=== PATIENT | male | born 1955 | race Caucasian/White ===

== ENCOUNTER → 2017-08-01 | Outpatient (CLI) | payer OTHER ==
[~2017-08-01] MED LIST: ALBU90OI INH; AMIKACIN S1000 MG/4 IV; Amikacin S250 MG/11 IV; CEFOXITIN IV; CLOFAZIMINE1 GM PO; IMIPENEM-CILAS500 MG IV; IPRA.06NI; MEROPENEM500 MG IV; METF500 PO; RANI150 PO; STRIVERDI RESPIM4 GM IH
== END | disposition home or self-care (01) ==
LOC: LAB 09:46 → EDSTATUS 07-27 15:10 → LAB FUT 07-27 15:10
DX: J47.1 Bronchiectasis with (acute) exacerbation (principal); R05 Cough
CPT/HCPCS: 87070; 87205

== ENCOUNTER → 2017-09-06 | Outpatient (CLI) | payer OTHER ==
[2017-09-07 13:32] LABS: Stool Occult Bld Immuno 1 Negative (NEGATIVE)
== END ==
LOC: OLS 16:15 → LAB SHORT 16:15 → LAB FUT 09-01 11:50 → EDSTATUS 09-01 11:50
PROVIDERS: Internal Medicine
DX: D50.8 Other iron deficiency anemias (principal)
CPT/HCPCS: 82274

== ENCOUNTER → 2020-09-06 | Outpatient (CLI) | payer MEDICARE, BC | END | disposition home or self-care (01) | LOC: LAB SHORT 07:30 → LAB 07:30 | DX: A31.9 Mycobacterial infection, unspecified (principal) | CPT/HCPCS: 87015; 87116; 87206 ==

== ENCOUNTER → 2020-11-07 | Outpatient (CLI) | payer MEDICARE, BC | LOC: LAB 08:00 → LAB SHORT 08:00 | DX: A31.0 Pulmonary mycobacterial infection (principal); J47.9 Bronchiectasis, uncomplicated; Z91.041 Radiographic dye allergy status | CPT/HCPCS: 87070; 87077; 87186; 87205 ==

== ENCOUNTER → 2020-11-21 | Outpatient (CLI) | payer MEDICARE, BC ==
[2020-11-21 14:49] LABS: Adenovirus F 40/41 Not Detected (NOT DETECT); Astrovirus Not Detected (NOT DETECT); Campylobacter Sp Not Detected (NOT DETECT); Cryptosporidium Not Detected (NOT DETECT); Cyclospora Cayetanensis Not Detected (NOT DETECT); E. Coli O157 Not Detected (NOT DETECT); Entamoeba Histolytica Not Detected (NOT DETECT); Enteroaggregative E. coli-EAEC Not Detected (NOT DETECT); Enteropathogenic E. coli-EPEC Not Detected (NOT DETECT); Enterotoxigenic E. coli-ETEC Not Detected (NOT DETECT); Giardia Lamblia Detected (NOT DETECT); Norovirus GI/GII Not Detected (NOT DETECT); Plesiomonas Shigelloides Not Detected (NOT DETECT); Rotavirus A Not Detected (NOT DETECT); Salmonella Sp Not Detected (NOT DETECT); Sapovirus Not Detected (NOT DETECT); Shiga Toxin-prod E. coli-STEC Not Detected (NOT DETECT); Shigella/Enteroin E. coli-EIEC Not Detected (NOT DETECT); Vibrio Cholerae Not Detected (NOT DETECT); Vibrio Sp Not Detected (NOT DETECT); Yersinia Enterocolitica Not Detected (NOT DETECT)
== END | disposition home or self-care (01) ==
LOC: LAB SHORT 09:30 → LAB 09:30
PROVIDERS: Internal Medicine
DX: R19.7 Diarrhea, unspecified (principal)
CPT/HCPCS: 0097U

== ENCOUNTER 2021-11-28 10:39 | Day surgery (SDC) | payer MEDICARE, BC ==
[~2021-11-28] VITALS: Ht 193 cm; Wt 79.7 kg
[~2021-11-28 10:39] MED LIST changes: +BREO ELLIPTA 11 EAC1 IH; +ETHA400 PO; +GLIP5 PO; +IPRATROPIUM BRO15 ML NS; +PROP10 PO; +RIFA150 PO
[2021-11-28] MEDS ORDERED: AZIT500 (11:26)
--- NOTE | 2021-11-28 13:02 | NUR ---
11/28/21 1302 BRENDA LY LIDOCAINE 2% 10MLS INJECTED AT BEGINNING OF CASE BY DR. JAMES. 0.05MG OF EPI ADDED TO 10MLS OF BUPIVACAINE 0.5% TO CREATE A LOCAL SOLUTION OF BUPIVACAINE 0.5% WITH EPI 1:200,000. LOCAL SOLUTION POURED ONTO STERILE FIELD FOR USE DURING CASE.
== END 2021-11-28 13:55 | disposition home or self-care (01) ==
LOC: ORSCSDS 10:39
PROVIDERS: Podiatrist Foot & Ankle Surgery
PROC: 0SGN04Z Fusion of Left Metatarsal-Phalangeal Joint with Internal Fixation Device, Open Approach (ICD-10-PCS; principal; 2021-11-28 11:55)
DX: S92.425D Nondisplaced fracture of distal phalanx of left great toe, subsequent encounter for fracture with routine healing (principal); K21.9 Gastro-esophageal reflux disease without esophagitis; E11.9 Type 2 diabetes mellitus without complications; Z79.84 Long term (current) use of oral hypoglycemic drugs; Z79.899 Other long term (current) drug therapy
CPT/HCPCS: 82947; J0171; J0690; J1885; J2250; J2704

== ENCOUNTER → 2022-08-25 | Outpatient (CLI) | payer MEDICARE, BC ==
[~2022-08-25] MED LIST changes: +AZIT500
== END ==
LOC: LAB 13:45 → LAB SHORT 13:45 → LAB FUT 08-11 17:50
DX: A31.0 Pulmonary mycobacterial infection (principal)
CPT/HCPCS: 87015; 87116; 87206

== ENCOUNTER → 2022-10-11 | Outpatient (CLI) | payer MEDICARE, BC | END | disposition home or self-care (01) | LOC: LAB SHORT 10:05 → LAB 10:05 | DX: J18.9 Pneumonia, unspecified organism (principal) | CPT/HCPCS: 87070; 87077; 87186; 87205 ==

== ENCOUNTER 2023-12-15 04:15 | Day surgery (SDC) | payer MEDICARE, BC ==
[2023-12-15 16:21] VITALS: BP 155/90
[2023-12-20] MEDS ORDERED: AMIKACIN S IV (11:11)
== END 2023-12-15 17:00 | disposition home or self-care (01) ==
LOC: ATC 04:15
DX: A31.0 Pulmonary mycobacterial infection (principal)
CPT/HCPCS: 36569; C1751

== ENCOUNTER 2024-01-03 03:42 | Day surgery (SDC) | payer MEDICARE, BC ==
[~2024-01-03 03:42] MED LIST changes: +AMIKACIN S IV
[2024-01-03 10:04] VITALS: BP 145/79
[2024-01-03] MEDS ORDERED: NS IV SCH (10:15)
[2024-01-03] MEDS ORDERED: AMIKACIN SULFATE IV SCH (10:15)
[2024-01-03 10:55] LABS: BASOPHILS ABSOLUTE AUTO 0.03 K/mm3 (0.00-0.23); BASOPHILS PERCENT AUTO 1 % (0-2); EOSINOPHILS ABSOLUTE AUTO 0.16 K/mm3 (0.00-0.68); EOSINOPHILS PERCENT AUTO 4 % (0-6); Hematocrit 36.4 % (37.0-53.0); Hemoglobin 12.1 g/dL (13.5-17.5); IMMATURE GRAN ABSOLUTE AUTO 0.01 K/mm3 (0.00-0.10); IMMATURE GRAN PERCENT AUTO 0 % (0-1); LYMPHOCYTES PERCENT AUTO 10 % (21-46); MONOCYTES ABSOLUTE AUTO 0.45 K/mm3 (0.16-1.47); MONOCYTES PERCENT AUTO 12 % (4-13); Mean Corpuscular HGB 31.5 pg (26.0-34.0); Mean Corpuscular HGB Conc 33.2 g/dL (31.5-36.5); Mean Corpuscular Volume 95 fL (80-100); Mean Platelet Volume 10.1 fL (9.1-12.4); NEUTROPHILS ABSOLUTE AUTO 2.84 K/mm3 (1.96-9.15); NEUTROPHILS PERCENT AUTO 73 % (41-73); Platelet Count 181 K/mm3 (150-400); RDW Coefficient Variation 12.8 % (11.7-14.2); RDW Standard Deviation 44.6 fL (35.1-46.3); Red Blood Cell Count 3.84 M/mm3 (4.30-5.90); White Blood Cell Count 3.89 K/mm3 (4.00-11.30)
[2024-01-03 11:22] LABS: Albumin, Blood 3.6 g/dL (3.4-5.0); Albumin/Globulin Ratio 0.9 (0.8-1.8); Bilirubin, Total 0.2 mg/dL (0.1-1.0); Bun/Creatinine Ratio 20.6 (12.0-20.0); Calcium, Blood 8.9 mg/dL (8.5-10.1); Creatinine, Blood 1.02 mg/dL (0.60-1.20); Potassium, Blood 4.6 mmol/L (3.5-5.5); Total Protein, Blood 7.6 g/dL (6.4-8.2)
[2024-01-03 12:24] LABS: BASOPHILS PERCENT MAN 0 % (0-2); EOSINOPHILS ABSOLUTE MAN 0.19 K/mm3 (0.00-0.68); EOSINOPHILS PERCENT MAN 5 % (0-6); LYMPHOCYTES ABSOLUTE MAN 0.35 K/mm3 (0.84-5.20); LYMPHOCYTES PERCENT MAN 9 % (21-46); MONOCYTES ABSOLUTE MAN 0.15 K/mm3 (0.16-1.47); MONOCYTES PERCENT MAN 4 % (4-13); NEUTROPHILS ABSOLUTE MAN 3.18 K/mm3 (1.96-9.15); SEG NEUTROPHILS PERCENT MAN 82 % (41-73); TOTAL CELLS COUNTED 100
--- NOTE | 2024-01-03 16:01 | NUR ---
Lab results from today faxed to Dr. Bustamante's office.
== END 2024-01-03 12:05 | disposition home or self-care (01) ==
LOC: ATC 03:42
PROVIDERS: Internal Medicine Infectious Disease
DX: A31.0 Pulmonary mycobacterial infection (principal); E11.9 Type 2 diabetes mellitus without complications
CPT/HCPCS: 80053; 85025; 96365; J0278; J7040

== ENCOUNTER 2024-01-06 02:42 | Day surgery (SDC) | payer MEDICARE, BC ==
[2024-01-06] MEDS ORDERED: NS IV SCH (07:20)
[2024-01-06] MEDS ORDERED: AMIKACIN SULFATE IV SCH (07:20)
[2024-01-06 08:35] VITALS: BP 113/87
== END 2024-01-06 09:42 | disposition home or self-care (01) ==
LOC: ATC 02:42
DX: A31.0 Pulmonary mycobacterial infection (principal); Z88.8 Allergy status to other drugs, medicaments and biological substances; Z79.84 Long term (current) use of oral hypoglycemic drugs; Z79.4 Long term (current) use of insulin; Z79.899 Other long term (current) drug therapy
CPT/HCPCS: 96365; J0278; J7040

== ENCOUNTER 2024-01-10 00:38 | Day surgery (SDC) | payer MEDICARE, BC ==
[~2024-01-10] VITALS: Wt 76.3 kg
[2024-01-10] MEDS ORDERED: NS IV SCH (06:00)
[2024-01-10] MEDS ORDERED: AMIKACIN SULFATE IV SCH (06:00)
[2024-01-10 10:01] VITALS: BP 131/91
== END 2024-01-10 11:45 | disposition home or self-care (01) ==
LOC: ATC 00:38
DX: Z01.818 Encounter for other preprocedural examination (principal); N39.3 Stress incontinence (female) (male); A31.0 Pulmonary mycobacterial infection; E11.9 Type 2 diabetes mellitus without complications; Z79.4 Long term (current) use of insulin; Z79.84 Long term (current) use of oral hypoglycemic drugs; Z88.8 Allergy status to other drugs, medicaments and biological substances; Z91.041 Radiographic dye allergy status
CPT/HCPCS: 36415; 80048; 81003; 85025; 85610; 87086; 96365; J0278; J7040

== ENCOUNTER 2024-01-13 02:39 | Day surgery (SDC) | payer MEDICARE, BC ==
[2024-01-13] MEDS ORDERED: NS IV SCH (07:00)
[2024-01-13] MEDS ORDERED: AMIKACIN SULFATE IV SCH (07:00)
[2024-01-13 10:07] VITALS: BP 159/94
== END 2024-01-13 11:13 | disposition home or self-care (01) ==
LOC: ATC 02:39
DX: A31.0 Pulmonary mycobacterial infection (principal); E11.9 Type 2 diabetes mellitus without complications; H91.93 Unspecified hearing loss, bilateral; Z79.84 Long term (current) use of oral hypoglycemic drugs; Z79.4 Long term (current) use of insulin
CPT/HCPCS: 96365; J0278; J7040

== ENCOUNTER 2024-01-17 00:31 | Day surgery (SDC) | payer MEDICARE, BC ==
[~2024-01-17] VITALS: Ht 223.5 cm; Wt 76.8 kg
[2024-01-17] MEDS ORDERED: AMIKACIN SULFATE IV SCH (06:00)
[2024-01-17] MEDS ORDERED: NS IV SCH (06:00)
[2024-01-17 14:18] VITALS: BP 131/65
[2024-01-17 14:29] LABS: BASOPHILS ABSOLUTE AUTO 0.04 K/mm3 (0.00-0.23); BASOPHILS PERCENT AUTO 1 % (0-2); EOSINOPHILS ABSOLUTE AUTO 0.32 K/mm3 (0.00-0.68); EOSINOPHILS PERCENT AUTO 7 % (0-6); Hematocrit 38.7 % (37.0-53.0); Hemoglobin 12.9 g/dL (13.5-17.5); IMMATURE GRAN ABSOLUTE AUTO 0.01 K/mm3 (0.00-0.10); IMMATURE GRAN PERCENT AUTO 0 % (0-1); LYMPHOCYTES ABSOLUTE AUTO 0.64 K/mm3 (0.84-5.20); LYMPHOCYTES PERCENT AUTO 13 % (21-46); MONOCYTES ABSOLUTE AUTO 0.45 K/mm3 (0.16-1.47); MONOCYTES PERCENT AUTO 9 % (4-13); Mean Corpuscular HGB 31.5 pg (26.0-34.0); Mean Corpuscular HGB Conc 33.3 g/dL (31.5-36.5); Mean Corpuscular Volume 94 fL (80-100); Mean Platelet Volume 10.1 fL (9.1-12.4); NEUTROPHILS ABSOLUTE AUTO 3.35 K/mm3 (1.96-9.15); NEUTROPHILS PERCENT AUTO 70 % (41-73); Platelet Count 148 K/mm3 (150-400); RDW Coefficient Variation 12.7 % (11.7-14.2); White Blood Cell Count 4.81 K/mm3 (4.00-11.30)
--- NOTE | 2024-01-17 14:32 | NUR ---
WE HAD ORDERS FROM [facility] TO DO LABS AND URINALYSIS TODAY PRIOR TO PT'S UPCOMING SURGERY IN [place]. PT DECLINED TODAY STATING THAT HE HAD ALL THOSE TAKEN CARE OF LAST WEEK IN THE OUTPATIENT LAB.
[2024-01-17 15:00] LABS: Albumin, Blood 3.6 g/dL (3.4-5.0); Albumin/Globulin Ratio 0.9 (0.8-1.8); Bilirubin, Total 0.3 mg/dL (0.1-1.0); Bun/Creatinine Ratio 23.5 (12.0-20.0); Calcium, Blood 9.5 mg/dL (8.5-10.1); Creatinine, Blood 0.89 mg/dL (0.60-1.20); Globulin, Blood 3.9 g/dL (2.2-4.0); Potassium, Blood 4.6 mmol/L (3.5-5.5); Total Protein, Blood 7.5 g/dL (6.4-8.2)
--- NOTE | 2024-01-17 17:12 | NUR ---
LAB RESULTS FAXED TO DR VALDIVIA
== END 2024-01-17 15:26 | disposition home or self-care (01) ==
LOC: ATC 00:31
PROVIDERS: Internal Medicine
DX: A31.0 Pulmonary mycobacterial infection (principal); E11.9 Type 2 diabetes mellitus without complications; Z79.84 Long term (current) use of oral hypoglycemic drugs; Z79.4 Long term (current) use of insulin; Z79.899 Other long term (current) drug therapy
CPT/HCPCS: 80053; 85025; 96365; J0278; J7040

== ENCOUNTER 2024-01-20 00:58 | Day surgery (SDC) | payer MEDICARE, BC ==
[2024-01-20] MEDS ORDERED: AMIKACIN SULFATE IV SCH (06:00)
[2024-01-20] MEDS ORDERED: NS IV SCH (06:00)
[2024-01-20 09:03] VITALS: BP 140/89
== END 2024-01-20 10:17 | disposition home or self-care (01) ==
LOC: ATC 00:58
DX: A31.0 Pulmonary mycobacterial infection (principal); E11.9 Type 2 diabetes mellitus without complications; Z88.8 Allergy status to other drugs, medicaments and biological substances; Z91.041 Radiographic dye allergy status; Z79.4 Long term (current) use of insulin; Z79.899 Other long term (current) drug therapy
CPT/HCPCS: 96365; J0278; J7040

== ENCOUNTER 2024-02-03 01:34 | Day surgery (SDC) | payer MEDICARE, BC ==
[2024-02-03] MEDS ORDERED: AMIKACIN SULFATE IV SCH (06:00)
[2024-02-03] MEDS ORDERED: NS IV SCH (06:00)
[2024-02-03 15:25] VITALS: BP 113/75
[2024-02-03 16:33] LABS: BASOPHILS ABSOLUTE AUTO 0.03 K/mm3 (0.00-0.23); BASOPHILS PERCENT AUTO 1 % (0-2); EOSINOPHILS ABSOLUTE AUTO 0.15 K/mm3 (0.00-0.68); EOSINOPHILS PERCENT AUTO 3 % (0-6); Hematocrit 35.8 % (37.0-53.0); Hemoglobin 11.9 g/dL (13.5-17.5); IMMATURE GRAN ABSOLUTE AUTO 0.01 K/mm3 (0.00-0.10); IMMATURE GRAN PERCENT AUTO 0 % (0-1); LYMPHOCYTES ABSOLUTE AUTO 0.51 K/mm3 (0.84-5.20); LYMPHOCYTES PERCENT AUTO 9 % (21-46); MONOCYTES ABSOLUTE AUTO 0.52 K/mm3 (0.16-1.47); MONOCYTES PERCENT AUTO 10 % (4-13); Mean Corpuscular HGB 31.4 pg (26.0-34.0); Mean Corpuscular HGB Conc 33.2 g/dL (31.5-36.5); Mean Corpuscular Volume 95 fL (80-100); Mean Platelet Volume 10.7 fL (9.1-12.4); NEUTROPHILS ABSOLUTE AUTO 4.27 K/mm3 (1.96-9.15); NEUTROPHILS PERCENT AUTO 78 % (41-73); Platelet Count 180 K/mm3 (150-400); RDW Coefficient Variation 12.6 % (11.7-14.2); RDW Standard Deviation 43.5 fL (35.1-46.3); Red Blood Cell Count 3.79 M/mm3 (4.30-5.90); White Blood Cell Count 5.49 K/mm3 (4.00-11.30)
[2024-02-03 17:11] LABS: Albumin, Blood 3.4 g/dL (3.4-5.0); Bilirubin, Total 0.3 mg/dL (0.1-1.0); Bun/Creatinine Ratio 25.7 (12.0-20.0); Calcium, Blood 8.8 mg/dL (8.5-10.1); Creatinine, Blood 1.05 mg/dL (0.60-1.20); Globulin, Blood 3.5 g/dL (2.2-4.0); Potassium, Blood 4.3 mmol/L (3.5-5.5); Total Protein, Blood 6.9 g/dL (6.4-8.2)
== END 2024-02-03 16:33 | disposition home or self-care (01) ==
LOC: ATC 01:34
PROVIDERS: Internal Medicine Infectious Disease
DX: A31.0 Pulmonary mycobacterial infection (principal); E11.9 Type 2 diabetes mellitus without complications; Z79.84 Long term (current) use of oral hypoglycemic drugs; Z79.4 Long term (current) use of insulin; Z79.899 Other long term (current) drug therapy
CPT/HCPCS: 80053; 85025; 96365; J0278; J7040

== ENCOUNTER 2024-02-07 03:48 | Day surgery (SDC) | payer MEDICARE, BC ==
[~2024-02-07] VITALS: Wt 77.7 kg
[2024-02-07] MEDS ORDERED: NS IV SCH (06:00)
[2024-02-07] MEDS ORDERED: AMIKACIN SULFATE IV SCH (06:00)
[2024-02-07 14:29] VITALS: BP 140/80
== END 2024-02-07 15:36 | disposition home or self-care (01) ==
LOC: ATC 03:48
DX: A31.0 Pulmonary mycobacterial infection (principal); J47.9 Bronchiectasis, uncomplicated; E11.9 Type 2 diabetes mellitus without complications; Z79.899 Other long term (current) drug therapy
CPT/HCPCS: 96365; J0278; J7040

== ENCOUNTER 2024-02-10 02:40 | Day surgery (SDC) | payer MEDICARE, BC ==
[2024-02-10] MEDS ORDERED: AMIKACIN SULFATE IV SCH (07:20)
[2024-02-10] MEDS ORDERED: NS IV SCH (07:20)
[2024-02-10 08:01] VITALS: BP 128/67
== END 2024-02-10 09:06 | disposition home or self-care (01) ==
LOC: ATC 02:40
DX: A31.0 Pulmonary mycobacterial infection (principal); E11.9 Type 2 diabetes mellitus without complications; Z88.8 Allergy status to other drugs, medicaments and biological substances; Z91.041 Radiographic dye allergy status; Z79.4 Long term (current) use of insulin; Z79.84 Long term (current) use of oral hypoglycemic drugs; Z79.899 Other long term (current) drug therapy
CPT/HCPCS: 96365; J0278; J7040

== ENCOUNTER 2024-02-14 04:52 | Day surgery (SDC) | payer MEDICARE, BC ==
[~2024-02-14] VITALS: Wt 76.8 kg
[2024-02-14] MEDS ORDERED: AMIKACIN SULFATE IV SCH (08:15)
[2024-02-14] MEDS ORDERED: NS IV SCH (08:15)
[2024-02-14 09:03] VITALS: BP 131/70
== END 2024-02-14 10:12 | disposition home or self-care (01) ==
LOC: ATC 04:52
DX: A31.0 Pulmonary mycobacterial infection (principal); E11.9 Type 2 diabetes mellitus without complications; J47.9 Bronchiectasis, uncomplicated
CPT/HCPCS: 96365; J0278; J7040

== ENCOUNTER 2024-02-17 02:34 | Day surgery (SDC) | payer MEDICARE, BC ==
[2024-02-17] MEDS ORDERED: AMIKACIN SULFATE IV SCH (07:20)
[2024-02-17] MEDS ORDERED: NS IV SCH (07:20)
[2024-02-17 08:03] VITALS: BP 133/68
[2024-02-17 08:47] LABS: BASOPHILS ABSOLUTE AUTO 0.04 K/mm3 (0.00-0.23); BASOPHILS PERCENT AUTO 1 % (0-2); EOSINOPHILS ABSOLUTE AUTO 0.31 K/mm3 (0.00-0.68); EOSINOPHILS PERCENT AUTO 8 % (0-6); Hematocrit 38.2 % (37.0-53.0); Hemoglobin 12.8 g/dL (13.5-17.5); IMMATURE GRAN PERCENT AUTO 0 % (0-1); LYMPHOCYTES ABSOLUTE AUTO 0.68 K/mm3 (0.84-5.20); LYMPHOCYTES PERCENT AUTO 17 % (21-46); MONOCYTES PERCENT AUTO 10 % (4-13); Mean Corpuscular HGB 31.5 pg (26.0-34.0); Mean Corpuscular HGB Conc 33.5 g/dL (31.5-36.5); Mean Corpuscular Volume 94 fL (80-100); Mean Platelet Volume 10.4 fL (9.1-12.4); NEUTROPHILS ABSOLUTE AUTO 2.52 K/mm3 (1.96-9.15); NEUTROPHILS PERCENT AUTO 64 % (41-73); Platelet Count 152 K/mm3 (150-400); RDW Coefficient Variation 12.8 % (11.7-14.2); RDW Standard Deviation 44.1 fL (35.1-46.3); Red Blood Cell Count 4.06 M/mm3 (4.30-5.90); White Blood Cell Count 3.95 K/mm3 (4.00-11.30)
[2024-02-17 09:12] LABS: Albumin, Blood 3.6 g/dL (3.4-5.0); Bilirubin, Total 0.5 mg/dL (0.1-1.0); Bun/Creatinine Ratio 22.2 (12.0-20.0); Calcium, Blood 9.4 mg/dL (8.5-10.1); Creatinine, Blood 1.08 mg/dL (0.60-1.20); Globulin, Blood 3.7 g/dL (2.2-4.0); Potassium, Blood 4.3 mmol/L (3.5-5.5); Total Protein, Blood 7.3 g/dL (6.4-8.2)
[2024-02-21] MEDS ORDERED: NS IV SCH
[2024-02-21] MEDS ORDERED: AMIKACIN SULFATE IV SCH
== END 2024-02-17 09:15 | disposition home or self-care (01) ==
LOC: ATC 02:34
PROVIDERS: Internal Medicine Infectious Disease
DX: A31.0 Pulmonary mycobacterial infection (principal); J47.9 Bronchiectasis, uncomplicated; H91.8X3 Other specified hearing loss, bilateral; E11.9 Type 2 diabetes mellitus without complications; Z79.4 Long term (current) use of insulin; Z79.84 Long term (current) use of oral hypoglycemic drugs; Z79.2 Long term (current) use of antibiotics; Z79.899 Other long term (current) drug therapy; Z91.041 Radiographic dye allergy status; Z88.8 Allergy status to other drugs, medicaments and biological substances
CPT/HCPCS: 80053; 85025; 96365; J0278; J7040

== ENCOUNTER 2024-02-21 02:02 | Day surgery (SDC) | payer MEDICARE, BC ==
[~2024-02-21] VITALS: Wt 76.4 kg
[~2024-02-21 02:02] MED LIST changes: +AMIKACIN SULFATE IV SCH; +NS IV SCH
[2024-02-21] MEDS ORDERED: AMIKACIN SULFATE IV SCH (07:30)
[2024-02-21] MEDS ORDERED: NS IV SCH (07:30)
[2024-02-21 08:36] VITALS: BP 124/72
== END 2024-02-21 09:48 | disposition home or self-care (01) ==
LOC: ATC 02:02
DX: A31.0 Pulmonary mycobacterial infection (principal); E11.9 Type 2 diabetes mellitus without complications; Z79.84 Long term (current) use of oral hypoglycemic drugs; Z79.4 Long term (current) use of insulin; Z79.899 Other long term (current) drug therapy
CPT/HCPCS: 96365; J0278; J7040

== ENCOUNTER 2024-02-24 02:31 | Day surgery (SDC) | payer MEDICARE, BC ==
[~2024-02-24] VITALS: Wt 77.1 kg
[~2024-02-24 02:31] MED LIST changes: -AMIKACIN SULFATE IV SCH; -NS IV SCH
[2024-02-24] MEDS ORDERED: NS IV SCH (06:00)
[2024-02-24] MEDS ORDERED: AMIKACIN SULFATE IV SCH (06:00)
[2024-02-24 09:08] VITALS: BP 131/71
== END 2024-02-24 10:09 | disposition home or self-care (01) ==
LOC: ATC 02:31
DX: A31.0 Pulmonary mycobacterial infection (principal)
CPT/HCPCS: 96365; J0278; J7040

== ENCOUNTER 2024-02-28 02:39 | Day surgery (SDC) | payer MEDICARE, BC ==
[~2024-02-28] VITALS: Wt 77.0 kg
[2024-02-28] MEDS ORDERED: NS IV SCH (06:00)
[2024-02-28] MEDS ORDERED: AMIKACIN SULFATE IV SCH (06:00)
[2024-02-28 08:35] VITALS: BP 125/63
== END 2024-02-28 09:49 | disposition home or self-care (01) ==
LOC: ATC 02:39
DX: A31.0 Pulmonary mycobacterial infection (principal); J47.9 Bronchiectasis, uncomplicated; E11.9 Type 2 diabetes mellitus without complications; H91.93 Unspecified hearing loss, bilateral; Z79.84 Long term (current) use of oral hypoglycemic drugs; Z79.4 Long term (current) use of insulin; Z79.2 Long term (current) use of antibiotics
CPT/HCPCS: 96365; J0278; J7040

== ENCOUNTER 2024-03-02 02:12 | Day surgery (SDC) | payer MEDICARE, BC ==
[~2024-03-02] VITALS: Wt 76.3 kg
[2024-03-02] MEDS ORDERED: NS IV SCH (06:00)
[2024-03-02] MEDS ORDERED: AMIKACIN SULFATE IV SCH (06:00)
[2024-03-02 13:32] VITALS: BP 127/66
[2024-03-02 14:16] LABS: BASOPHILS ABSOLUTE AUTO 0.05 K/mm3 (0.00-0.23); BASOPHILS PERCENT AUTO 1 % (0-2); EOSINOPHILS PERCENT AUTO 5 % (0-6); Hematocrit 39.6 % (37.0-53.0); IMMATURE GRAN ABSOLUTE AUTO 0.01 K/mm3 (0.00-0.10); IMMATURE GRAN PERCENT AUTO 0 % (0-1); LYMPHOCYTES ABSOLUTE AUTO 0.53 K/mm3 (0.84-5.20); LYMPHOCYTES PERCENT AUTO 9 % (21-46); MONOCYTES ABSOLUTE AUTO 0.55 K/mm3 (0.16-1.47); MONOCYTES PERCENT AUTO 9 % (4-13); Mean Corpuscular HGB 31.3 pg (26.0-34.0); Mean Corpuscular HGB Conc 32.8 g/dL (31.5-36.5); Mean Corpuscular Volume 95 fL (80-100); Mean Platelet Volume 10.5 fL (9.1-12.4); NEUTROPHILS ABSOLUTE AUTO 4.55 K/mm3 (1.96-9.15); NEUTROPHILS PERCENT AUTO 76 % (41-73); Platelet Count 196 K/mm3 (150-400); RDW Coefficient Variation 12.5 % (11.7-14.2); RDW Standard Deviation 43.6 fL (35.1-46.3); Red Blood Cell Count 4.16 M/mm3 (4.30-5.90); White Blood Cell Count 5.99 K/mm3 (4.00-11.30)
[2024-03-02 14:45] LABS: Albumin, Blood 3.6 g/dL (3.4-5.0); Albumin/Globulin Ratio 0.9 (0.8-1.8); Bilirubin, Total 0.6 mg/dL (0.1-1.0); Bun/Creatinine Ratio 25.7 (12.0-20.0); Calcium, Blood 8.9 mg/dL (8.5-10.1); Creatinine, Blood 1.09 mg/dL (0.60-1.20); Potassium, Blood 4.8 mmol/L (3.5-5.5); Total Protein, Blood 7.6 g/dL (6.4-8.2)
== END 2024-03-02 14:49 | disposition home or self-care (01) ==
LOC: ATC 02:12
PROVIDERS: Internal Medicine Infectious Disease
DX: A31.0 Pulmonary mycobacterial infection (principal); E11.9 Type 2 diabetes mellitus without complications; J47.9 Bronchiectasis, uncomplicated; Z79.899 Other long term (current) drug therapy
CPT/HCPCS: 80053; 85025; 96365; J0278; J7040

== ENCOUNTER 2024-03-06 02:11 | Day surgery (SDC) | payer MEDICARE, BC ==
[~2024-03-06] VITALS: Wt 78.8 kg
[2024-03-06] MEDS ORDERED: AMIKACIN SULFATE IV SCH (06:00)
[2024-03-06] MEDS ORDERED: NS IV SCH (06:00)
[2024-03-06 13:55] VITALS: BP 121/91
== END 2024-03-06 15:30 | disposition home or self-care (01) ==
LOC: ATC 02:11
DX: A31.0 Pulmonary mycobacterial infection (principal); E11.9 Type 2 diabetes mellitus without complications; Z79.899 Other long term (current) drug therapy; Z79.84 Long term (current) use of oral hypoglycemic drugs
CPT/HCPCS: 96365; J0278; J7040

== ENCOUNTER 2024-03-09 03:16 | Day surgery (SDC) | payer MEDICARE, BC ==
[2024-03-09] MEDS ORDERED: AMIKACIN SULFATE IV SCH (06:00)
[2024-03-09] MEDS ORDERED: NS IV SCH (06:00)
[2024-03-09 11:10] VITALS: BP 148/82
== END 2024-03-09 12:16 | disposition home or self-care (01) ==
LOC: ATC 03:16
DX: A31.0 Pulmonary mycobacterial infection (principal); E11.9 Type 2 diabetes mellitus without complications; Z79.4 Long term (current) use of insulin; Z79.899 Other long term (current) drug therapy
CPT/HCPCS: 96365; J0278; J7040

== ENCOUNTER 2024-03-13 03:09 | Day surgery (SDC) | payer MEDICARE, BC ==
[~2024-03-13] VITALS: Wt 77.2 kg
[2024-03-13] MEDS ORDERED: AMIKACIN SULFATE IV SCH (08:05)
[2024-03-13] MEDS ORDERED: NS IV SCH (08:05)
[2024-03-13 11:08] VITALS: BP 138/84
== END 2024-03-13 12:15 | disposition home or self-care (01) ==
LOC: ATC 03:09
DX: A31.0 Pulmonary mycobacterial infection (principal); E11.9 Type 2 diabetes mellitus without complications; Z79.84 Long term (current) use of oral hypoglycemic drugs; Z79.899 Other long term (current) drug therapy
CPT/HCPCS: 96365; J0278; J7040

== ENCOUNTER 2024-03-16 01:41 | Day surgery (SDC) | payer MEDICARE, BC ==
[~2024-03-16] VITALS: Wt 76.5 kg
[2024-03-16] MEDS ORDERED: NS IV SCH (07:10)
[2024-03-16] MEDS ORDERED: AMIKACIN SULFATE IV SCH (07:10)
[2024-03-16 08:13] VITALS: BP 136/73
[2024-03-16 08:45] LABS: BASOPHILS ABSOLUTE AUTO 0.05 K/mm3 (0.00-0.23); BASOPHILS PERCENT AUTO 1 % (0-2); EOSINOPHILS ABSOLUTE AUTO 0.34 K/mm3 (0.00-0.68); EOSINOPHILS PERCENT AUTO 9 % (0-6); Hematocrit 39.7 % (37.0-53.0); Hemoglobin 13.2 g/dL (13.5-17.5); IMMATURE GRAN ABSOLUTE AUTO 0.01 K/mm3 (0.00-0.10); IMMATURE GRAN PERCENT AUTO 0 % (0-1); LYMPHOCYTES ABSOLUTE AUTO 0.62 K/mm3 (0.84-5.20); LYMPHOCYTES PERCENT AUTO 17 % (21-46); MONOCYTES ABSOLUTE AUTO 0.42 K/mm3 (0.16-1.47); MONOCYTES PERCENT AUTO 12 % (4-13); Mean Corpuscular HGB 31.3 pg (26.0-34.0); Mean Corpuscular HGB Conc 33.2 g/dL (31.5-36.5); Mean Corpuscular Volume 94 fL (80-100); Mean Platelet Volume 10.2 fL (9.1-12.4); NEUTROPHILS ABSOLUTE AUTO 2.22 K/mm3 (1.96-9.15); NEUTROPHILS PERCENT AUTO 61 % (41-73); Platelet Count 162 K/mm3 (150-400); RDW Coefficient Variation 12.5 % (11.7-14.2); RDW Standard Deviation 43.4 fL (35.1-46.3); Red Blood Cell Count 4.22 M/mm3 (4.30-5.90); White Blood Cell Count 3.66 K/mm3 (4.00-11.30)
[2024-03-16 09:40] LABS: Alanine Aminotransfer (ALT/SGP <6 U/L (12-78); Albumin, Blood 3.5 g/dL (3.4-5.0); Albumin/Globulin Ratio 0.9 (0.8-1.8); Alk Phos 85 U/L (50-136); Anion Gap 8 mmol/L (3-11); Aspartate Aminotrans (AST/SGOT 22 U/L (12-37); Bilirubin, Total 0.4 mg/dL (0.1-1.0); Blood Urea Nitrogen 23 mg/dL (8-24); CO2, Blood 29 mmol/L (21-32); Calcium, Blood 9.1 mg/dL (8.5-10.1); Chloride, Blood 108 mmol/L (98-108); Creatinine, Blood 1.15 mg/dL (0.60-1.20); Globulin, Blood 3.9 g/dL (2.2-4.0); Glomerular Filtration Rate 68 (60-); Glucose, Blood 154 mg/dL (70-99); Potassium, Blood 4.7 mmol/L (3.5-5.5); Sodium, Blood 140 mmol/L (136-145); Total Protein, Blood 7.4 g/dL (6.4-8.2)
== END 2024-03-16 09:27 | disposition home or self-care (01) ==
LOC: ATC 01:41
PROVIDERS: Internal Medicine Infectious Disease
DX: A31.0 Pulmonary mycobacterial infection (principal); J47.9 Bronchiectasis, uncomplicated; E11.9 Type 2 diabetes mellitus without complications; Z91.041 Radiographic dye allergy status; Z88.8 Allergy status to other drugs, medicaments and biological substances
CPT/HCPCS: 80053; 85025; 96365; J0278; J7040

== ENCOUNTER → 2024-03-17 | Outpatient (CLI) | payer MEDICARE, BC | LOC: LAB SHORT 10:37 → LAB 10:37 | DX: A31.9 Mycobacterial infection, unspecified (principal) | CPT/HCPCS: 87116 ==

== ENCOUNTER 2024-03-20 00:42 | Day surgery (SDC) | payer MEDICARE, BC ==
[2024-03-20] MEDS ORDERED: NS IV SCH (06:00)
[2024-03-20] MEDS ORDERED: AMIKACIN SULFATE IV SCH (06:00)
[2024-03-20 10:11] VITALS: BP 127/71
== END 2024-03-20 11:21 | disposition home or self-care (01) ==
LOC: ATC 00:42
DX: A31.0 Pulmonary mycobacterial infection (principal); J47.9 Bronchiectasis, uncomplicated; E11.9 Type 2 diabetes mellitus without complications; Z79.2 Long term (current) use of antibiotics; Z79.4 Long term (current) use of insulin; Z79.84 Long term (current) use of oral hypoglycemic drugs
CPT/HCPCS: 96365; J0278; J7040

== ENCOUNTER 2024-03-27 03:12 | Day surgery (SDC) | payer MEDICARE, BC ==
[2024-03-27 08:56] VITALS: BP 134/69
[2024-03-27 14:30] VITALS: BP 142/76
== END 2024-03-27 14:38 | disposition home or self-care (01) ==
LOC: ATC 03:12
DX: Z48.00 Encounter for change or removal of nonsurgical wound dressing (principal); A31.0 Pulmonary mycobacterial infection; E11.9 Type 2 diabetes mellitus without complications; J47.9 Bronchiectasis, uncomplicated; Z79.2 Long term (current) use of antibiotics; Z79.4 Long term (current) use of insulin; Z79.84 Long term (current) use of oral hypoglycemic drugs
CPT/HCPCS: 99212

== ENCOUNTER → 2024-08-22 | Outpatient (CLI) | payer MEDICARE, BC | LOC: LAB 09:08 → LAB SHORT 09:08 | DX: A31.0 Pulmonary mycobacterial infection (principal); A49.8 Other bacterial infections of unspecified site; J47.9 Bronchiectasis, uncomplicated | CPT/HCPCS: 87070; 87077; 87186; 87205 ==

== ENCOUNTER 2024-08-28 15:41 | Day surgery (SDC) | payer MEDICARE, BC ==
[2024-08-28] MEDS ORDERED: Cefepime HCl 2,000 MG in NS 100 ML IV SCH (15:55)
[2024-08-28 16:40] VITALS: BP 152/84
[2024-08-28] MEDS ORDERED: CARBIDOPA-LEVO1 EA15 PO (17:03)
[2024-08-28] MEDS ORDERED: HUMALOG KW100 UNIT/1 SC (17:04)
[2024-08-28] MEDS ORDERED: INSULANI SC (17:04)
[2024-08-28] MEDS ORDERED: AMAN100 PO (17:05)
[2024-08-28 17:24] LABS: BASOPHILS ABSOLUTE AUTO 0.03 K/mm3 (0.00-0.23); BASOPHILS PERCENT AUTO 1 % (0-2); EOSINOPHILS ABSOLUTE AUTO 0.26 K/mm3 (0.00-0.68); EOSINOPHILS PERCENT AUTO 5 % (0-6); Hematocrit 36.3 % (37.0-53.0); IMMATURE GRAN ABSOLUTE AUTO 0.01 K/mm3 (0.00-0.10); IMMATURE GRAN PERCENT AUTO 0 % (0-1); LYMPHOCYTES ABSOLUTE AUTO 0.57 K/mm3 (0.84-5.20); LYMPHOCYTES PERCENT AUTO 11 % (21-46); MONOCYTES ABSOLUTE AUTO 0.69 K/mm3 (0.16-1.47); MONOCYTES PERCENT AUTO 13 % (4-13); Mean Corpuscular HGB 31.3 pg (26.0-34.0); Mean Corpuscular HGB Conc 33.1 g/dL (31.5-36.5); Mean Corpuscular Volume 95 fL (80-100); Mean Platelet Volume 9.9 fL (9.1-12.4); NEUTROPHILS ABSOLUTE AUTO 3.88 K/mm3 (1.96-9.15); NEUTROPHILS PERCENT AUTO 71 % (41-73); Platelet Count 216 K/mm3 (150-400); RDW Coefficient Variation 12.4 % (11.7-14.2); RDW Standard Deviation 43.6 fL (35.1-46.3); Red Blood Cell Count 3.84 M/mm3 (4.30-5.90); White Blood Cell Count 5.44 K/mm3 (4.00-11.30)
[2024-08-28 17:48] LABS: Albumin, Blood 2.9 g/dL (3.4-5.0); Albumin/Globulin Ratio 0.6 (0.8-1.8); Bilirubin, Total 0.4 mg/dL (0.1-1.0); Calcium, Blood 9.5 mg/dL (8.5-10.1); Creatinine, Blood 1.09 mg/dL (0.60-1.20); Globulin, Blood 4.7 g/dL (2.2-4.0); Potassium, Blood 4.3 mmol/L (3.5-5.5); Total Protein, Blood 7.6 g/dL (6.4-8.2)
== END 2024-08-28 16:59 | disposition home or self-care (01) ==
LOC: ATC 15:41
PROVIDERS: Internal Medicine Infectious Disease
DX: J47.0 Bronchiectasis with acute lower respiratory infection (principal); A49.8 Other bacterial infections of unspecified site
CPT/HCPCS: 80053; 85025; 96365; C1751; J0692

== ENCOUNTER 2024-08-29 04:50 | Day surgery (SDC) | payer MEDICARE, BC ==
[~2024-08-29 04:50] MED LIST changes: +AMAN100 PO; +CARBIDOPA-LEVO1 EA15 PO; +HUMALOG KW100 UNIT/1 SC; +INSULANI SC
[2024-08-29] MEDS ORDERED: Cefepime HCl 2,000 MG in NS 100 ML IV SCH (06:55)
[2024-08-29 07:34] VITALS: BP 136/94
== END 2024-08-29 16:53 | disposition home or self-care (01) ==
LOC: ATC 04:50
DX: J47.0 Bronchiectasis with acute lower respiratory infection (principal); A49.8 Other bacterial infections of unspecified site; J18.9 Pneumonia, unspecified organism; E11.9 Type 2 diabetes mellitus without complications; Z79.899 Other long term (current) drug therapy; Z79.84 Long term (current) use of oral hypoglycemic drugs
CPT/HCPCS: 96365; J0692

== ENCOUNTER 2024-08-30 00:48 | Day surgery (SDC) | payer MEDICARE, BC ==
[2024-08-30] MEDS ORDERED: Cefepime HCl 2,000 MG in NS 100 ML IV SCH (06:00)
[2024-08-30 07:37] VITALS: BP 135/75
[2024-08-30 16:27] VITALS: BP 142/90
== END 2024-08-30 17:12 | disposition home or self-care (01) ==
LOC: ATC 00:48
DX: J47.0 Bronchiectasis with acute lower respiratory infection (principal); B96.5 Pseudomonas (aeruginosa) (mallei) (pseudomallei) as the cause of diseases classified elsewhere; Z79.84 Long term (current) use of oral hypoglycemic drugs; Z79.899 Other long term (current) drug therapy
CPT/HCPCS: 96365; J0692

== ENCOUNTER 2024-08-31 02:11 | Day surgery (SDC) | payer MEDICARE, BC ==
[2024-08-31] MEDS ORDERED: Cefepime HCl 2,000 MG in NS 100 ML IV SCH (06:00)
[2024-08-31 07:35] VITALS: BP 140/75
[2024-08-31 16:40] VITALS: BP 136/91
--- NOTE | 2024-08-31 17:07 | NUR ---
SECOND DOSE OF MAXIPIME WAS COMPLETE AT 1700
== END 2024-08-31 17:00 | disposition home or self-care (01) ==
LOC: ATC 02:11
DX: J47.0 Bronchiectasis with acute lower respiratory infection (principal); A49.8 Other bacterial infections of unspecified site; E11.9 Type 2 diabetes mellitus without complications; Z88.8 Allergy status to other drugs, medicaments and biological substances; Z79.84 Long term (current) use of oral hypoglycemic drugs; Z79.4 Long term (current) use of insulin; Z79.899 Other long term (current) drug therapy
CPT/HCPCS: 96365; J0692

== ENCOUNTER 2024-09-01 02:58 | Day surgery (SDC) | payer MEDICARE, BC ==
[2024-09-01] MEDS ORDERED: Cefepime HCl 2,000 MG in NS 100 ML IV SCH (06:00)
[2024-09-01 07:35] VITALS: BP 143/89
[2024-09-01 16:36] VITALS: BP 116/73
== END 2024-09-01 16:56 | disposition home or self-care (01) ==
LOC: ATC 02:58
DX: J47.0 Bronchiectasis with acute lower respiratory infection (principal); A49.8 Other bacterial infections of unspecified site; Z88.8 Allergy status to other drugs, medicaments and biological substances; Z91.041 Radiographic dye allergy status; Z79.4 Long term (current) use of insulin; Z79.84 Long term (current) use of oral hypoglycemic drugs; Z79.899 Other long term (current) drug therapy
CPT/HCPCS: 96365; J0692

== ENCOUNTER 2024-09-02 04:18 | Day surgery (SDC) | payer MEDICARE, BC ==
[2024-09-02] MEDS ORDERED: Cefepime HCl 2,000 MG in NS 100 ML IV SCH (06:00)
[2024-09-02 07:53] VITALS: BP 121/77
[2024-09-02 16:32] VITALS: BP 120/91
== END 2024-09-02 16:53 | disposition home or self-care (01) ==
LOC: ATC 04:18
DX: J47.0 Bronchiectasis with acute lower respiratory infection (principal); A49.8 Other bacterial infections of unspecified site; E11.9 Type 2 diabetes mellitus without complications; Z79.4 Long term (current) use of insulin; Z79.84 Long term (current) use of oral hypoglycemic drugs; Z79.899 Other long term (current) drug therapy
CPT/HCPCS: 96365; J0692

== ENCOUNTER 2024-09-03 00:34 | Day surgery (SDC) | payer MEDICARE, BC ==
[~2024-09-03 00:34] MED LIST changes: +Cefepime HCl 2,000 MG in NS 100 ML IV SCH
[2024-09-03 07:33] VITALS: BP 124/84
== END 2024-09-03 16:56 | disposition home or self-care (01) ==
LOC: ATC 00:34
DX: J47.0 Bronchiectasis with acute lower respiratory infection (principal); A49.8 Other bacterial infections of unspecified site; E11.9 Type 2 diabetes mellitus without complications; Z79.84 Long term (current) use of oral hypoglycemic drugs; Z79.4 Long term (current) use of insulin; Z79.899 Other long term (current) drug therapy
CPT/HCPCS: 96365; J0692

== ENCOUNTER 2024-09-04 07:28 | Day surgery (SDC) | payer MEDICARE, BC ==
[2024-09-04 07:31] VITALS: BP 135/85
[2024-09-04 09:40] LABS: BASOPHILS ABSOLUTE AUTO 0.05 K/mm3 (0.00-0.23); BASOPHILS PERCENT AUTO 1 % (0-2); EOSINOPHILS ABSOLUTE AUTO 0.33 K/mm3 (0.00-0.68); EOSINOPHILS PERCENT AUTO 6 % (0-6); Hematocrit 37.7 % (37.0-53.0); Hemoglobin 12.4 g/dL (13.5-17.5); IMMATURE GRAN ABSOLUTE AUTO 0.02 K/mm3 (0.00-0.10); IMMATURE GRAN PERCENT AUTO 0 % (0-1); LYMPHOCYTES ABSOLUTE AUTO 0.59 K/mm3 (0.84-5.20); LYMPHOCYTES PERCENT AUTO 10 % (21-46); MONOCYTES ABSOLUTE AUTO 0.51 K/mm3 (0.16-1.47); MONOCYTES PERCENT AUTO 9 % (4-13); Mean Corpuscular HGB 31.2 pg (26.0-34.0); Mean Corpuscular HGB Conc 32.9 g/dL (31.5-36.5); Mean Corpuscular Volume 95 fL (80-100); NEUTROPHILS ABSOLUTE AUTO 4.15 K/mm3 (1.96-9.15); NEUTROPHILS PERCENT AUTO 74 % (41-73); Platelet Count 243 K/mm3 (150-400); RDW Coefficient Variation 12.4 % (11.7-14.2); RDW Standard Deviation 43.1 fL (35.1-46.3); Red Blood Cell Count 3.98 M/mm3 (4.30-5.90); White Blood Cell Count 5.65 K/mm3 (4.00-11.30)
[2024-09-04 09:59] LABS: Albumin, Blood 3.2 g/dL (3.4-5.0); Albumin/Globulin Ratio 0.7 (0.8-1.8); Bilirubin, Total 0.4 mg/dL (0.1-1.0); Bun/Creatinine Ratio 21.7 (12.0-20.0); Creatinine, Blood 0.97 mg/dL (0.60-1.20); Globulin, Blood 4.5 g/dL (2.2-4.0); Potassium, Blood 4.4 mmol/L (3.5-5.5); Total Protein, Blood 7.7 g/dL (6.4-8.2)
[2024-09-04 16:43] VITALS: BP 122/88
== END 2024-09-04 17:05 | disposition home or self-care (01) ==
LOC: ATC 07:28
PROVIDERS: Internal Medicine Infectious Disease
DX: J47.0 Bronchiectasis with acute lower respiratory infection (principal); A49.8 Other bacterial infections of unspecified site; E11.9 Type 2 diabetes mellitus without complications; Z79.84 Long term (current) use of oral hypoglycemic drugs; Z79.899 Other long term (current) drug therapy; Z91.041 Radiographic dye allergy status; Z88.3 Allergy status to other anti-infective agents
CPT/HCPCS: 80053; 85025; 96365; J0692

== ENCOUNTER 2024-09-05 07:29 | Day surgery (SDC) | payer MEDICARE, BC ==
[2024-09-05 07:35] VITALS: BP 138/86
[2024-09-05 16:35] VITALS: BP 139/72
== END 2024-09-05 16:55 | disposition home or self-care (01) ==
LOC: ATC 07:29
DX: J47.0 Bronchiectasis with acute lower respiratory infection (principal); B96.5 Pseudomonas (aeruginosa) (mallei) (pseudomallei) as the cause of diseases classified elsewhere; Z79.899 Other long term (current) drug therapy; Z79.84 Long term (current) use of oral hypoglycemic drugs; Z79.4 Long term (current) use of insulin
CPT/HCPCS: 96365; J0692

== ENCOUNTER 2024-09-06 02:06 | Day surgery (SDC) | payer MEDICARE, BC ==
[2024-09-06 07:36] VITALS: BP 128/78
== END 2024-09-06 13:55 | disposition home or self-care (01) ==
LOC: ATC 02:06
DX: J47.0 Bronchiectasis with acute lower respiratory infection (principal); A49.8 Other bacterial infections of unspecified site; Z79.899 Other long term (current) drug therapy
CPT/HCPCS: 96365; J0692

== ENCOUNTER 2024-09-07 03:14 | Day surgery (SDC) | payer MEDICARE, BC ==
[~2024-09-07 03:14] MED LIST changes: -Cefepime HCl 2,000 MG in NS 100 ML IV SCH
[2024-09-07] MEDS ORDERED: Cefepime HCl 2,000 MG in NS 100 ML IV SCH (06:00)
[2024-09-07 16:25] VITALS: BP 131/75
== END 2024-09-07 16:49 | disposition home or self-care (01) ==
LOC: ATC 03:14
DX: J47.0 Bronchiectasis with acute lower respiratory infection (principal); B96.5 Pseudomonas (aeruginosa) (mallei) (pseudomallei) as the cause of diseases classified elsewhere; E11.9 Type 2 diabetes mellitus without complications; Z79.84 Long term (current) use of oral hypoglycemic drugs; Z79.4 Long term (current) use of insulin; Z79.899 Other long term (current) drug therapy; Z88.8 Allergy status to other drugs, medicaments and biological substances; Z91.041 Radiographic dye allergy status
CPT/HCPCS: 96365; J0692

== ENCOUNTER 2024-09-08 03:21 | Day surgery (SDC) | payer MEDICARE, BC ==
[2024-09-08] MEDS ORDERED: Cefepime HCl 2,000 MG in NS 100 ML IV SCH (06:00)
[2024-09-08 07:38] VITALS: BP 124/79
== END 2024-09-08 16:47 | disposition home or self-care (01) ==
LOC: ATC 03:21
DX: J47.0 Bronchiectasis with acute lower respiratory infection (principal); B96.5 Pseudomonas (aeruginosa) (mallei) (pseudomallei) as the cause of diseases classified elsewhere; Z79.84 Long term (current) use of oral hypoglycemic drugs; Z79.899 Other long term (current) drug therapy; E11.9 Type 2 diabetes mellitus without complications
CPT/HCPCS: 96365; J0692

== ENCOUNTER 2024-09-09 04:02 | Day surgery (SDC) | payer MEDICARE, BC ==
[2024-09-09] MEDS ORDERED: Cefepime HCl 2,000 MG in NS 100 ML IV SCH (06:00)
[2024-09-09 07:30] VITALS: BP 126/74
[2024-09-09 16:24] VITALS: BP 139/78
== END 2024-09-09 16:44 | disposition home or self-care (01) ==
LOC: ATC 04:02
DX: J47.0 Bronchiectasis with acute lower respiratory infection (principal); A49.8 Other bacterial infections of unspecified site; E11.9 Type 2 diabetes mellitus without complications; Z79.84 Long term (current) use of oral hypoglycemic drugs; Z79.4 Long term (current) use of insulin; Z79.899 Other long term (current) drug therapy
CPT/HCPCS: 96365; J0692

== ENCOUNTER 2024-09-10 00:34 | Day surgery (SDC) | payer MEDICARE, BC ==
[2024-09-10] MEDS ORDERED: Cefepime HCl 2,000 MG in NS 100 ML IV SCH (06:00)
[2024-09-10 07:30] VITALS: BP 139/91
[2024-09-10 16:29] VITALS: BP 130/70
== END 2024-09-10 16:49 | disposition home or self-care (01) ==
LOC: ATC 00:34
DX: J47.0 Bronchiectasis with acute lower respiratory infection (principal); A49.8 Other bacterial infections of unspecified site; E11.9 Type 2 diabetes mellitus without complications; Z79.4 Long term (current) use of insulin; Z79.84 Long term (current) use of oral hypoglycemic drugs; Z79.899 Other long term (current) drug therapy; Z88.8 Allergy status to other drugs, medicaments and biological substances
CPT/HCPCS: 96365; J0692

== ENCOUNTER 2024-09-11 07:32 | Day surgery (SDC) | payer MEDICARE, BC ==
[2024-09-11 07:25] VITALS: BP 116/78
[~2024-09-11 07:32] MED LIST changes: +Cefepime HCl 2,000 MG in NS 100 ML IV SCH
[2024-09-11 08:26] LABS: BASOPHILS ABSOLUTE AUTO 0.04 K/mm3 (0.00-0.23); BASOPHILS PERCENT AUTO 1 % (0-2); EOSINOPHILS ABSOLUTE AUTO 0.31 K/mm3 (0.00-0.68); EOSINOPHILS PERCENT AUTO 7 % (0-6); Hematocrit 36.9 % (37.0-53.0); Hemoglobin 12.1 g/dL (13.5-17.5); IMMATURE GRAN ABSOLUTE AUTO 0.01 K/mm3 (0.00-0.10); IMMATURE GRAN PERCENT AUTO 0 % (0-1); LYMPHOCYTES ABSOLUTE AUTO 0.56 K/mm3 (0.84-5.20); LYMPHOCYTES PERCENT AUTO 13 % (21-46); MONOCYTES ABSOLUTE AUTO 0.38 K/mm3 (0.16-1.47); MONOCYTES PERCENT AUTO 9 % (4-13); Mean Corpuscular HGB 31.3 pg (26.0-34.0); Mean Corpuscular HGB Conc 32.8 g/dL (31.5-36.5); Mean Corpuscular Volume 96 fL (80-100); NEUTROPHILS ABSOLUTE AUTO 2.93 K/mm3 (1.96-9.15); NEUTROPHILS PERCENT AUTO 69 % (41-73); Platelet Count 214 K/mm3 (150-400); RDW Coefficient Variation 13.1 % (11.7-14.2); RDW Standard Deviation 45.6 fL (35.1-46.3); Red Blood Cell Count 3.86 M/mm3 (4.30-5.90); White Blood Cell Count 4.23 K/mm3 (4.00-11.30)
[2024-09-11 08:42] LABS: Albumin, Blood 3.3 g/dL (3.4-5.0); Albumin/Globulin Ratio 0.8 (0.8-1.8); Bilirubin, Total 0.6 mg/dL (0.1-1.0); Calcium, Blood 9.1 mg/dL (8.5-10.1); Creatinine, Blood 0.95 mg/dL (0.60-1.20); Globulin, Blood 4.3 g/dL (2.2-4.0); Potassium, Blood 4.5 mmol/L (3.5-5.5); Total Protein, Blood 7.6 g/dL (6.4-8.2)
--- NOTE | 2024-09-11 08:49 | NUR ---
Lab results from today faxed to Dr. Bustamante's office.
== END 2024-09-11 07:54 | disposition home or self-care (01) ==
LOC: ATC 07:32
PROVIDERS: Internal Medicine Infectious Disease
DX: J47.0 Bronchiectasis with acute lower respiratory infection (principal); A49.8 Other bacterial infections of unspecified site; E11.9 Type 2 diabetes mellitus without complications; Z88.8 Allergy status to other drugs, medicaments and biological substances; Z79.84 Long term (current) use of oral hypoglycemic drugs; Z79.4 Long term (current) use of insulin; Z79.899 Other long term (current) drug therapy
CPT/HCPCS: 80053; 85025; 96365; J0692

== ENCOUNTER → 2025-02-23 | Outpatient (CLI) | payer MEDICARE, BC ==
[~2025-02-23] MED LIST changes: -Cefepime HCl 2,000 MG in NS 100 ML IV SCH
== END ==
LOC: LAB SHORT 15:40 → LAB 15:40
DX: J47.9 Bronchiectasis, uncomplicated (principal)
CPT/HCPCS: 87070; 87077; 87186; 87205